=== PATIENT | female | born 1990 | race Two or more races ===

== ENCOUNTER 2019-10-03 22:29 | Emergency (ER) | payer SELFPAY ==
--- NOTE | 2019-10-03 22:36 | EDM.PDOC ---
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 x4. Per Dr. Irvin's clinic note from a visit on 07/30/2019, transvaginal ultrasound was done that confirmed IUP with EDC of 03/01/2020. 29-year-old female with no past medical history presenting with low abdominal/pelvic cramping. Onset around 7 PM while at rest. Nothing makes it better or worse, described as "cramping", rated as 7 out of 10. Pain has been constant since the onset. No history of prior pain like this with this . Nonradiating. No self treatment prior to arrival. Denies fever, chills, dysuria, urinary frequency, hematuria, vaginal bleeding or discharge, or back pain. ROS: A 10-point review of systems was negative, except as noted in the HPI (or in the ROS section of this note). Past medical history: Reviewed, no additional pertinent history. Surgical history: Reviewed in system, no additional pertinent history. Social history: Reviewed in system, no additional pertinent history. Family history: Reviewed in system, no additional pertinent history. PHYSICAL EXAM Vital signs reviewed. Nursing notes reviewed. Constitutional: Awake, alert, non-distressed. Head: Normocephalic, atraumatic. Eyes: EOMI, conjunctiva normal, no discharge, no scleral icterus. Ears, Nose, Throat: External ears and nose normal, moist oral mucosa. Cardiovascular: 2+ radial pulse, capillary refill less than 2 seconds. Pulmonary: normal work of breathing, no accessory muscle use. Abdomen/GI: Gravid, soft, mild midline low pelvic pain, nondistended, no guarding or rigidity, no masses. Negative Isidro sign. No tenderness to palpation at McBurney's point. Musculoskeletal: No deformities. Integumentary: Appropriate color for ethnicity, warm, dry, no pallor or jaundice, no rash. Neurologic: Alert, answering questions appropriately, normal speech, no facial droop, moving all extremities well. Psychiatric: Appropriate mood and affect, normal thought process. abdominal Pain Score (Numeric/FACES): 5 - Related Data Allergies Allergy/AdvReac Type Severity Reaction Status Date / Time No Known Allergies Allergy Verified 10/03/19 22:36 Home Meds: Home Meds Headache Medication 10/03/19 [History] nitrofurantoin macrocrystaL [Nitrofurantoin] 100 mg PO BID 5 Days #10 capsule 10/04/19 [Rx] ED ROS GENERAL - Review of Systems Review Of Systems: See Below ED EXAM - Physical Exam Exam: See Below Course - Vital Signs Text/Narrative:: Patient hemodynamically stable, afebrile, well-appearing, looks nontoxic. Differential diagnosis includes but is not limited to: Uterine pain, appendicitis, UTI, pyelonephritis, kidney stone, diverticulitis, epiploic appendagitis, threatened , round ligament pain, placental abruption, HELLP syndrome, ovarian cyst, ovarian torsion, etc. CBC shows a very mild leukocytosis to 11.85. CRP is minimally elevated at 1.00 (cutoff of 0.90). Metabolic panel shows a very mild hypokalemia. Normal renal function. Urinalysis shows small protein, large ketones, large leukocyte esterase, 15-18 white blood cells, 3+ bacteria and heavy mucus. Given Tylenol for pain. I considered a wide range differentials for the patient's pain as listed above. At this point my suspicion for an intra-abdominal infection, particularly appendicitis, is quite low. The patient is afebrile and has no constitutional symptoms such as fever, chills, nausea, or vomiting. Her white count is only very minimally elevated, as is her CRP, so this is not strongly suggestive of an inflammatory or infectious process. She has had pain for several hours and it has not migrated to the right lower quadrant or the right upper quadrant, which makes appendicitis less likely. Her pain improved with acetaminophen. Unfortunately, the ultrasound was not able to identify the adnexa or the appendix. I repeated my abdominal exam at 0245 - the patient is still minimally tender over the midline pelvis but her area of tenderness has not migrated laterally, which is reassuring that this is not likely to be appendicitis. She does not have any vaginal bleeding or discharge, so I did not feel that a pelvic examination would add to the diagnostic utility of this visit. We did discuss with the patient the limitations of ultrasound imaging without MRI or CT. We are not able to obtain an MRI after hours and I am not strongly suspicious for a surgical emergency or intra-abdominal infectious process at this point based on the overall presentation. I did not feel that the risk of radiation exposure with a CT outweighed the benefit of additional diagnostic utility given that my suspicion for a surgical emergency or intraabdominal infectious process is quite low at present. The patient is comfortable with this. I feel comfortable discharging the patient home at this point. I did prescribe nitrofurantoin for asymptomatic bacteriuria in . We did discuss that if her symptoms were to worsen, particularly worsening pain, or if she were to develop a fever, vaginal bleeding, vaginal discharge, or any other new or concerning symptoms, she should come back to the ER right away and we would consider advanced imaging and further workup at that point. In the meantime I counseled her that she can take [id number] Tylenol for pain along with use of a heating pad. She should follow-up with a primary medical doctor or her OB clinic in the next several days for reevaluation if her symptoms do not subside. She is comfortable and agreeable with this plan. Plan: Patient is stable to discharge home with outpatient primary care clinic follow-up. Strict emergency department return precautions were provided, patient indicated understanding. All questions were answered prior to departure. Discharged in good condition. Last Recorded V/S: Last Vital Signs Temp 36.0 C L 10/03/19 22:38 Pulse 83 10/03/19 22:38 Resp 18 10/03/19 22:38 BP 117/58 L 10/03/19 22:38 Pulse Ox 96 10/03/19 22:38 - Orders/Labs/Meds Labs: Laboratory Tests 10/03/19 10/03/19 10/03/19 Range/Units 22:58 22:58 23:05 WBC 11.85 H (4.0-11.0) K/uL RBC 3.90 L (4.30-5.90) M/uL Hgb 11.8 L (12.0-16.0) g/dL Hct 34.5 L (36.0-46.0) % MCV 88.5 (80.0-98.0) fL MCH 30.3 (27.0-32.0) pg MCHC 34.2 (31.0-37.0) g/dL RDW Std Deviation 40.6 (28.0-62.0) fl RDW Coeff of Digna 13 (11.0-15.0) % Plt Count 309 (150-400) K/uL MPV 9.00 (7.40-12.00) fL Neut % (Auto) 81.1 H (48.0-80.0) % Lymph % (Auto) 14.0 L (16.0-40.0) % [place] % (Auto) 4.5 (0.0-15.0) % Eos % (Auto) 0.2 (0.0-7.0) % Baso % (Auto) 0.2 (0.0-1.5) % Neut # (Auto) 9.6 H (1.4-5.7) K/uL Lymph # (Auto) 1.7 (0.6-2.4) K/uL [place] # (Auto) 0.5 (0.0-0.8) K/uL Eos # (Auto) 0.0 (0.0-0.7) K/uL Baso # (Auto) 0.0 (0.0-0.1) K/uL Nucleated RBC % 0.0 /100WBC Nucleated RBCs # 0 K/uL Sodium 138 (136-145) mmol/L Potassium 3.4 L (3.5-5.1) mmol/L Chloride 104 (98-107) mmol/L Carbon Dioxide 22.4 (21.0-32.0) mmol/L BUN 7 (7.0-18.0) mg/dL Creatinine 0.7 (0.6-1.0) mg/dL Est Cr Clr Drug Dosing 99.86 mL/min Estimated GFR (MDRD) > 60.0 ml/min Glucose 91 (74-106) mg/dL Calcium 9.2 (8.5-10.1) mg/dL C-Reactive Protein 1.00 H (0.00-0.90) mg/dL Urine Color YELLOW Urine Appearance CLOUDY Urine pH 6.0 (5.0-8.0) Ur Specific [place] 1.025 (1.001-1.035) Urine Protein 30 H (NEGATIVE) mg/dL Urine Glucose (UA) NEGATIVE (NEGATIVE) mg/dL Urine Ketones >=80 (NEGATIVE) mg/dL Urine Occult Blood NEGATIVE (NEGATIVE) Urine Nitrite NEGATIVE (NEGATIVE) Urine Bilirubin NEGATIVE (NEGATIVE) Urine Urobilinogen 1.0 (<2.0) EU/dL Ur Leukocyte Esterase LARGE H (NEGATIVE) Urine RBC 0-2 (0-2/HPF) Urine WBC 15-18 (0-5/HPF) Ur Epithelial Cells MANY (NONE-FEW) Amorphous Sediment MODERATE (NEGATIVE) Urine Bacteria 3+ H (NEGATIVE) Urine Mucus HEAVY (NONE-MOD) Meds: Medications Discontinued Medications Generic Name Dose Route Start Last Admin Trade Name Freq PRN Reason Stop Dose Admin Acetaminophen 1,000 mg 10/03/19 22:51 10/03/19 23:03 Tylenol Extra Strength PO 10/03/19 22:52 1,000 mg ONETIME ONE Administration Departure - Departure Time of Disposition: 02:48 Disposition: Home, Self-Care 01 Condition: Good Clinical Impression: Asymptomatic bacteriuria during Abdominal pain in Qualifiers: Trimester: second trimester Qualified Code(s): O26.892 - Other specified related conditions, second trimester - Discharge Information *PRESCRIPTION DRUG MONITORING PROGRAM REVIEWED*: Not Applicable *COPY OF PRESCRIPTION DRUG MONITORING REPORT IN PATIENT KERMIT: Not Applicable Prescriptions: nitrofurantoin macrocrystaL [Nitrofurantoin] 100 mg PO BID 5 Days #10 capsule Instructions: Asymptomatic Bacteriuria, Abdominal Pain During , [id number] Referrals: Chana Woody CNM [Primary Care Provider] - Forms: ED Department Discharge Additional Instructions: The following information is given to patients seen in the emergency department who are being discharged to home. This information is to outline your options for follow-up care. We provide all patients seen in our emergency department with a follow-up referral. The need for follow-up, as well as the timing and circumstances, are variable depending upon the specifics of your emergency department visit. If you don't have a primary care physician on staff, we will provide you with a referral. We always advise you to contact your personal physician following an emergency department visit to inform them of the circumstance of the visit and for follow-up with them and/or the need for any referrals to a consulting specialist. The emergency department will also refer you to a specialist when appropriate. This referral assures that you have the opportunity for follow-up care with a specialist. All of these measure are taken in an effort to provide you with optimal care, which includes your follow-up. Under all circumstances we always encourage you to contact your private physician who remains a resource for coordinating your care. When calling for follow-up care, please make the office aware that this follow-up is from your recent emergency room visit. If for any reason you are refused follow-up, please contact the [facility] Emergency Department at and asked to speak to the emergency department charge nurse. [facility] [address] [place] [id number] [facility] [address] [place] [id number] Sepsis Event Note (ED) - Focused Exam Vital Signs: Vital Signs Temp Pulse Resp BP Pulse Ox 10/03/19 22:38 36.0 C L 83 18 117/58 L 96
[2019-10-03] MEDS ORDERED: Acetaminophen 500 MG Tab PO ONE (22:51)
[2019-10-03 23:19] LABS: BLOOD UREA NITROGEN,BUN 7 mg/dL (7.0-18.0); CARBON DIOXIDE,CO2 22.4 mmol/L (21.0-32.0); CHLORIDE,CL 104 mmol/L (98-107); GLUCOSE RANDOM 91 mg/dL (74-106); POTASSIUM,K 3.4 mmol/L (3.5-5.1); SODIUM,NA 138 mmol/L (136-145)
--- NOTE | 2019-10-04 02:27 | US ---
INDICATION: Midline lower pelvic pain TECHNIQUE: Ultrasound OB pelvis transabdominal. Real-time keith-scale imaging of the fetus was performed as well as color Doppler and spectral Doppler analysis of the umbilical artery. COMPARISON: None FINDINGS: Sonographic imaging demonstrates a single living intrauterine gestation. Fetus demonstrates a regular cardiac rate of 147 beats per minute. Fetus has a transverse orientation. The placenta lies fundal and posterior without evidence of placenta previa. Amniotic fluid volume appears normal. Single deepest vertical pocket: 2.8 cm cm. Cervical length is 3.5 cm The composite ultrasound gestational age is calculated at 19 weeks 2 days with an estimated sonographic due date of February 26, 2020. The estimated weight is 291 grams which lies at the 84.6 %. The following biometric measurements were obtained: Biparietal diameter: 4.4 cm/19 weeks 2 days Head circumference: 16.3 cm/19 weeks 0 days Abdominal circumference: 14.6 cm/19 weeks 6 days Femur length: 2.9 cm/19 weeks 0 days The ovaries and the appendix were not visualized on this exam. survey demonstrates limited evaluation of the face, gender, nose and lips, right ventricular outflow tract, four-chamber heart. There is a three-vessel cord. Normal appearance of the stomach, cord insertion, both kidneys, diaphragm, upper and lower extremities, urinary bladder, aorta, left ventricular outflow tract, aortic arch, intracranial lateral ventricles, cerebellum, cisterna magna, and cervical, thoracic, lumbar and sacral spine. IMPRESSION: 1.Single viable intrauterine . No abnormalities identified. Ultrasound gestational age is 19 weeks 2 days with sonographic due date of February 26, 2020. 2. Limited survey as described above. Recommend follow-up exam. 3. The appendix and ovaries were not visualized on this exam. Dictated by Erica Goldman MD @ Oct 04 2019 2:19AM Signed by Dr. Erica Goldman @ Oct 04 2019 2:26AM
== END 2019-10-04 03:00 | disposition home or self-care (01) ==
LOC: MW.ED 22:29
DX: O99.89 Other specified diseases and conditions complicating pregnancy, childbirth and the puerperium (principal); R10.30 Lower abdominal pain, unspecified; O23.32 Infections of other parts of urinary tract in pregnancy, second trimester; R82.71 Bacteriuria; Z3A.19 19 weeks gestation of pregnancy
CPT/HCPCS: 36415; 76805; 80048; 81001; 85025; 86140; 99284; A9270; 99283

== ENCOUNTER 2020-02-16 02:26 | Inpatient (IN) | payer MEDICAID ==
[2020-02-16] MEDS ORDERED: Sodium Chloride 0.9% 10 ML SDV IV PRN ×2 (04:22→06:24)
[2020-02-16] MEDS ORDERED: Sodium Chloride 0.9% 10 ML Syringe FLUSH PRN ×2 (04:22→06:24)
[2020-02-16] MEDS ORDERED: Sodium Chloride 0.9% 2.5 ML Syringe FLUSH PRN ×2 (04:22→06:24)
[2020-02-16] MEDS ORDERED: hydrOXYzine Pamoate 25 MG Cap PO ONE (04:24)
[2020-02-16] MEDS ORDERED: Lactated Ringers 1,000 ML IV SCH (04:30)
[2020-02-16] MEDS ORDERED: Lidocaine 1% 50 ML MDV INJECT PRN (06:24)
[2020-02-16] MEDS ORDERED: Nalbuphine 10 MG/1 ML Vial IVPUSH PRN (06:24)
[2020-02-16] MEDS ORDERED: Water For Irrigation,Sterile 1,000 ML Container IRR PRN (06:24)
[2020-02-16] MEDS ORDERED: Misoprostol 200 MCG Tab PO PRN (06:24)
[2020-02-16] MEDS ORDERED: Methylergonovine 0.2 MG/1 ML Amp IM PRN (06:24)
[2020-02-16] MEDS ORDERED: Carboprost Tromethamine 250 MCG/1 ML Amp IM PRN (06:24)
[2020-02-16] MEDS ORDERED: Ondansetron 4 MG/2 ML SDV IVPUSH PRN (06:24)
[2020-02-16] MEDS ORDERED: Tranexamic Acid 1,000 MG in Sodium Chloride 0.9% 100 ML IV PRN (06:24)
[2020-02-16] MEDS ORDERED: Oxytocin/0.9 % Sodium Chloride 30 UNIT/500 ML BAG IV SCH ×2 (06:30→11:15)
[2020-02-16] MEDS ORDERED: Ampicillin 2 GM in Sodium Chloride 0.9% 100 ML IV ONE ×2 (06:31→21:30)
[2020-02-16] MEDS: Lactated Ringers 1,000 ML IV SCH ×2 (06:47→19:06)
[2020-02-16] MEDS: Butorphanol 1 MG/ML SDV IVPUSH PRN ×2 (06:52→16:28)
--- NOTE | 2020-02-16 08:46 | PCM.LDHP ---
L&D History of Present Illness - General Date of Service: 02/16/20 Admit Problem/Dx: Patient Status Order with Admit Dx/Problem 02/16/20 03:09 Patient Status [ADT] Routine 02/16/20 06:25 Patient Status [ADT] Routine Admission Diagnosis/Problem Admission Diagnosis/Problem 02/16/20 08:41 Gabby is a 29 yo at 38+0 weeks gestation (TA[place]NA 03/01/2020) that presents to L&D today with C/O painful consistent uterine contractions since 1 am today, 10/10 sharp pain upon arrival. Reports adequate movement. Denies [place] vaginal bleeding at this time. A pos, RI, GBS pos. NKDA. EFW via [place] 6- 7 lbs. Pertinent medical history includes: GBS pos screen this , low lying placenta this resolved, HSIL pap this , migraines. NKDA. Medications: PNV, Fioricet. Patient has no other complaints or concerns at this time. 02/16/20 08:43 02/16/20 08:46 Source of Information: Patient History Limitations: Reports: No Limitations - History of Present Illness Location, : Reports: Abdomen Quality: Reports: Sharp Severity: Severe Pain Score: 10 Improves with: Reports: None Worsens with: Reports: None Associated Symptoms: Reports: N - Related Data Allergies/Adverse Reactions: Allergies Allergy/AdvReac Type Severity Reaction Status Date / Time No Known Allergies Allergy Verified 10/03/19 22:36 Past Medical History HEENT History: Reports: None Cardiovascular History: Reports: None Respiratory History: Reports: None Gastrointestinal History: Reports: None Genitourinary History: Reports: None 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: , Other (See Below) (HSIL pap) : 5 Para: 4 LMP (Approximate): Musculoskeletal History: Reports: None Neurological History: Reports: Migraines Psychiatric History: Reports: None Endocrine/Metabolic History: Reports: None Hematologic History: Reports: None Immunologic History: Reports: None Oncologic (Cancer) History: Reports: None Dermatologic History: Reports: None - Infectious Disease History Infectious Disease History: Reports: None - Past Surgical History Head Surgeries/Procedures: Reports: None HEENT Surgical History: Reports: None Cardiovascular Surgical History: Reports: None GI Surgical History: Reports: None Female Surgical History: Reports: None Endocrine Surgical History: Reports: None Neurological Surgical History: Reports: None Musculoskeletal Surgical History: Reports: None Oncologic Surgical History: Reports: None Dermatological Surgical History: Reports: None Social & Family History - Family History Family Medical History: No Pertinent Family History - Tobacco Use Tobacco Use Status *Q: Never Tobacco User Second Hand Smoke Exposure: No - Caffeine Use Caffeine Use: Reports: None - Alcohol Use Alcohol Use History: No - Recreational Drug Use Recreational Drug Use: No H&P Review of Systems - Review of Systems: Review Of Systems: Comprehensive ROS is negative, except as noted in HPI. General: Reports: No Symptoms HEENT: Reports: No Symptoms Pulmonary: Reports: No Symptoms Cardiovascular: Reports: No Symptoms Gastrointestinal: Reports: No Symptoms Genitourinary: Reports: No Symptoms Musculoskeletal: Reports: No Symptoms Skin: Reports: No Symptoms Psychiatric: Reports: No Symptoms Neurological: Reports: No Symptoms Hematologic/Lymphatic: Reports: No Symptoms Immunologic: Reports: No Symptoms L&D Exam - Exam Exam: See Below - Vital Signs Vital Signs: BP 102/60 (68), HR 82, T 97.8, RR 16, O2 100% on RA Weight: 188 lb 3 oz - OB Specific Fundal Height In cm: 38 Contraction Duration (sec): 80-90 Contraction Frequency (min): 2-4 Contraction Intensity: Moderate to Strong Movement: Active Heart Tones: Present Heart Tones per Min: 120 Heart Rate (FHR) Variability: Moderate (6-25 bmp) Presentation: Vertex (Confirmed vertex via handheld TAUS at bedside) - Bates Score Bates Score Cervix Position: Midposition Bates Score Consistency: Soft Bates Score Effacement: 51-70% Bates Score Dilation: 1-2 cm Bates Score Infant's Station: -2 Bates Score Total: 7 - Exam General: Oriented, Cooperative, Sedated (Stadol 1 mg IV push at 0652) HEENT: Conjunctiva Clear, Hearing Intact, Mucosa Moist & [place], TMs Clear, PERRLA Neck: Supple, Trachea Midline Lungs: Clear to Auscultation, Normal Respiratory Effort Cardiovascular: Regular Rate, Regular Rhythm GI/Abdominal Exam: Normal Bowel Sounds, Soft, Non-Tender, No Organomegaly, No Distention Rectal Exam: Deferred Genitourinary: Enlarged uterus (Gravid uterus, 38 cm) Back Exam: Normal Inspection, Full Range of Motion Extremities: Normal Inspection, Normal Range of Motion, Non-Tender, No Pedal Edema, Normal Capillary Refill Skin: Warm, Dry, Intact Neurological: Cranial Nerves Intact, Reflexes Equal Bilateral Psychiatric: Alert, Normal Affect, Normal Mood - Patient Data Lab Results Last 24 hrs: Laboratory Results - last 24 hr 02/16/20 02/16/20 02/16/20 Range/Units 06:20 06:43 06:43 WBC 8.87 (4.0-11.0) K/uL RBC 3.97 L (4.30-5.90) M/uL Hgb 10.8 L (12.0-16.0) g/dL Hct 33.7 L (36.0-46.0) % MCV 84.9 (80.0-98.0) fL MCH 27.2 (27.0-32.0) pg MCHC 32.0 (31.0-37.0) g/dL RDW Std Deviation 38.7 (28.0-62.0) fl RDW Coeff of Digna 13 (11.0-15.0) % Plt Count 313 (150-400) K/uL MPV 10.50 (7.40-12.00) fL Nucleated RBC % 0.0 /100WBC Nucleated RBCs # 0 K/uL SARS-CoV-2 RNA (ALISA) NEGATIVE (NEGATIVE) Blood Type A POSITIVE Antibody Screen NEGATIVE Result Diagrams: 02/16/20 06:43 - Problem List (1) Uterine contractions at greater than 20 weeks of gestation SNOMED Code(s): 060642529 ICD Code: [id number] - Status: Acute Priority: High Current Visit: Yes (2) 38 weeks gestation of SNOMED Code(s): 55537636 ICD Code: Z3A.38 - 38 WEEKS GESTATION OF Status: Acute Priority: High Current Visit: Yes Problem List Initiated/Reviewed/Updated: Yes Orders Last 24hrs: Active Orders 24 hr Category Date Time Status Patient Status [ADT] Routine ADT 02/16/20 06:25 Active May Shower [RC] ASDIRECTED Care 02/16/20 06:25 Active Notify Provider [RC] PRN Care 02/16/20 06:25 Active Up ad Shannon [RC] ASDIRECTED Care 02/16/20 03:09 Active Vital Signs [RC] PER UNIT ROUTINE Care 02/16/20 03:09 Active Vital Signs [RC] PER UNIT ROUTINE Care 02/16/20 06:25 Active RPR (SYPHILIS SERO) W/ RFLX [REF] Routine Lab 02/16/20 06:43 Received Ampicillin 1 gm Med 02/16/20 11:00 Active Sodium Chloride 0.9% [Normal Saline] 50 ml IV Q4H Butorphanol [Stadol] Med 02/16/20 06:24 Active 1 mg IVPUSH Q1H PRN Carboprost Tromethamine [Hemabate DS] Med 02/16/20 06:24 Active 250 mcg IM ASDIRECTED PRN Lactated Ringers [Ringers, Lactated] 1,000 ml Med 02/16/20 04:30 Active IV .BOLUS Lactated Ringers [Ringers, Lactated] 1,000 ml Med 02/16/20 06:30 Active IV ASDIRECTED Lidocaine 1% [Xylocaine 1%] Med 02/16/20 06:24 Active 50 ml INJECT ONETIME PRN Methylergonovine [Methergine] Med 02/16/20 06:24 Active 0.2 mg IM ASDIRECTED PRN Nalbuphine [Nubain] Med 02/16/20 06:24 Active 10 mg IVPUSH Q1H PRN Ondansetron [Zofran] Med 02/16/20 06:24 Active 4 mg IVPUSH Q6H PRN Oxytocin/0.9 % Sodium Chloride [Oxytocin 30 Unit/500 ML Med 02/16/20 06:30 Active -NS] 30 unit in 500 ml IV TITRATE Sodium Chloride 0.9% [Normal Saline] Med 02/16/20 04:22 Active 10 ml IV ASDIRECTED PRN Sodium Chloride 0.9% [Normal Saline] Med 02/16/20 06:24 Active 10 ml IV ASDIRECTED PRN Sodium Chloride 0.9% [Saline Flush] Med 02/16/20 04:22 Active 10 ml FLUSH ASDIRECTED PRN Sodium Chloride 0.9% [Saline Flush] Med 02/16/20 06:24 Active 10 ml FLUSH ASDIRECTED PRN Sodium Chloride 0.9% [Saline Flush] Med 02/16/20 04:22 Active 2.5 ml FLUSH ASDIRECTED PRN Sodium Chloride 0.9% [Saline Flush] Med 02/16/20 06:24 Active 2.5 ml FLUSH ASDIRECTED PRN Tranexamic Acid [Cyklokapron] 1,000 mg Med 02/16/20 06:24 Active Sodium Chloride 0.9% [Normal Saline] 100 ml IV ONETIME Water For Irrigation,Sterile [Sterile Water for Med 02/16/20 06:24 Active Irrigation] 1,000 ml IRR ASDIRECTED PRN miSOPROStoL [Cytotec] Med 02/16/20 06:24 Active 200 mcg PO ONETIME PRN Scalp Electrode [WOMSER] Per Unit Routine Oth 02/16/20 06:25 Ordered Peripheral IV Insertion Adult [OM.PC] Routine Oth 02/16/20 04:22 Ordered Peripheral IV Insertion Adult [OM.PC] Routine Oth 02/16/20 06:25 Ordered Resuscitation Status Routine Resus Stat 02/16/20 03:09 Ordered Medication Orders Butorphanol Tartrate (Stadol) 1 mg IVPUSH Q1H PRN PRN Reason: Pain Last Admin: 02/16/20 06:52 Dose: 1 mg Documented by: LEANNE Carboprost Tromethamine (Hemabate Ds) 250 mcg IM ASDIRECTED PRN PRN Reason: Post Hemorrhage Lactated Ringer's (Ringers, Lactated) 1,000 mls @ 999 mls/hr IV .BOLUS [facility], [facility]1983 Last Admin: 02/16/20 04:45 Dose: 999 mls/hr Documented by: LEANNE Lactated Ringer's (Ringers, Lactated) 1,000 mls @ 150 mls/hr IV ASDIRECTED [facility], [facility] Last Admin: 02/16/20 06:47 Dose: 150 mls/hr Documented by: LEANNE Oxytocin/Sodium Chloride (Oxytocin 30 Unit/500 Ml-Ns) 30 unit in 500 mls @ 999 mls/hr IV TITRATE [facility], [facility]1983 Tranexamic Acid 1,000 mg/ (Sodium Chloride) 110 mls @ 660 mls/hr IV ONETIME PRN PRN Reason: Bleeding Ampicillin Sodium 1 gm/ Sodium (Chloride) 50 mls @ 100 mls/hr IV Q4H [facility]1983 Lidocaine HCl (Xylocaine 1%) 50 ml INJECT ONETIME PRN PRN Reason: Laceration repair Methylergonovine Maleate (Methergine) 0.2 mg IM ASDIRECTED PRN PRN Reason: Post Hemorrhage Misoprostol (Cytotec) 200 mcg PO ONETIME PRN PRN Reason: Post Hemorrhage Nalbuphine HCl (Nubain) 10 mg IVPUSH Q1H PRN PRN Reason: Pain (severe 7-10) Ondansetron HCl (Zofran) 4 mg IVPUSH Q6H PRN PRN Reason: Nausea/Vomiting Sodium Chloride (Saline Flush) 10 ml FLUSH ASDIRECTED PRN PRN Reason: Keep Vein Open Sodium Chloride (Saline Flush) 2.5 ml FLUSH ASDIRECTED PRN PRN Reason: Keep Vein Open Sodium Chloride (Normal Saline) 10 ml IV ASDIRECTED PRN PRN Reason: IV Use Sodium Chloride (Saline Flush) 10 ml FLUSH ASDIRECTED PRN PRN Reason: Keep Vein Open Sodium Chloride (Saline Flush) 2.5 ml FLUSH ASDIRECTED PRN PRN Reason: Keep Vein Open Sodium Chloride (Normal Saline) 10 ml IV ASDIRECTED PRN PRN Reason: IV Use Sterile Water (Sterile Water For Irrigation) 1,000 ml IRR ASDIRECTED PRN PRN Reason: delivery Assessment/Plan Comment:: Admit for observation in anticipation of of term viable . Vertex via handheld TAUS at bedside. FHR Cat II. Spontaneous contractions noted. Expectant management, reassess cervical dilation ~1015 am. If no change has been make, notify provider May ambulate and hydrotherapy as desired after reactive NST achieved; repeat NST per orders. May receive epidural if desired between 4-[address] new orders[address] Dr. Irvin notified and agreeable with POC.
[2020-02-16] MEDS: Ampicillin 1 GM in Sodium Chloride 0.9% 50 ML IV SCH ×3 (10:48→18:44)
[2020-02-16] MEDS ORDERED: Ampicillin 1 GM in Sodium Chloride 0.9% 50 ML IV SCH (11:00)
[2020-02-16] MEDS ORDERED: Misoprostol 25 MCG (1/4 of 100 MCG) Tab PO PRN (11:06)
[2020-02-16] MEDS ORDERED: Misoprostol 25 MCG (1/4 of 100 MCG) Tab VAG PRN (11:06)
[2020-02-16] MEDS ORDERED: Terbutaline 1 MG/ML SDV SUBCUT PRN (11:06)
[2020-02-16] MEDS ORDERED: fentaNYL 100 MCG/2 ML SDV ONE (19:09)
[2020-02-16] MEDS ORDERED: Ropivacaine HCl/PF 100 ML ONE (19:09)
[2020-02-16] MEDS ORDERED: HYDROmorphone 2 MG/ML Syringe ONE ×2 (20:35→20:37)
[2020-02-16] MEDS ORDERED: HYDROmorphone 1 MG/ML Syringe IVPUSH ONE (20:36)
[2020-02-16] MEDS ORDERED: Morphine 2 MG/ML SYRINGE ONE (20:42)
[2020-02-16] MEDS ORDERED: Morphine 2 MG/ML SYRINGE IVPUSH ONE (20:46)
[2020-02-16] MEDS ORDERED: Witch Hazel Medicated Pads 40/Jar TOP PRN (21:28)
[2020-02-16] MEDS ORDERED: Ibuprofen 400 MG Tab PO PRN (21:28)
[2020-02-16] MEDS ORDERED: Ibuprofen 800 MG Tab PO PRN (21:28)
[2020-02-16] MEDS ORDERED: oxyCODONE 5 MG Tab PO PRN (21:28)
[2020-02-16] MEDS ORDERED: Lanolin 100% Cream 7 GM Tube TOP PRN (21:28)
[2020-02-16] MEDS ORDERED: Acetaminophen 500 MG Tab PO PRN (21:28)
[2020-02-16] MEDS ORDERED: Bisacodyl 10 MG Supp RECTAL PRN (21:28)
[2020-02-16] MEDS ORDERED: Benzocaine/Menthol 20%-0.5% Spray 78 GM Cannister TOP PRN (21:28)
--- NOTE | 2020-02-16 21:31 | PCM.DEL ---
L & D Note - General Info Date of Service: 02/16/20 Mother's Due Date: 03/01/20 - Delivery Note Labor: Augmented by ARM, Augmented by Oxytocin Delivery Outcome: Livebirth Delivery Method: Spontaneous Vaginal Delivery-Single Infant Delivery Mode: Spontaneous Presentation: Right Occiput Anterior (QUANG) Nuchal Cord: Present (Somers[place]ed through, reduced S/P delivery) Anesthesia Type: None Amniotic Fluid Description: Clear Episiotomy Type: None Laceration: None Placenta: Intact, Manual Removal, Retained Cord: 3 Vessels Estimated Blood Loss: 600 Resuscitation Needed: No : Stimulated, Warmed, [place] Used Score 1 min: 8 Score 5 min: 9 Post Delivery Events: Retained Placenta Second Stage Interventions: Reports: Encouragement Given, Pushing Ineffectively, Pushing, Stirrups/Leg Supports Delivery Comments (Free Text/Narrative):: Gabby is a 29 yo at 38+0 weeks gestation ([place] 03/01/2020) that presents to L&D today with spontaneous contractions and augmentation of labor with subsequent of term viable NBF. A pos, RI, GBS pos. NKDA. Patient expressed desire for epidural, however patient was complete with spontaneous desire to push upon arrival of anesthesiologist, ultimately declined epidural. Coped fairly well using non-pharmacologic comfort measures. Cephalic presentation. head delivered QUANG spontaneously, loose nuchal x1 noted, body somersaulted through shortly after with the next push. NBF placed to maternal abdomen, warmed, dried, stimulated with spontaneous cries. Umbilical cord left intact for ~3 min, clamped x 2, cut by FOB. Pitocin bolus commenced, gentle cord traction applied for active third stage management. Perineum inspected, intact. I&O urinary catheter utilized to empty bladder; urethra cleansed with iodine swab x3, inserted gently using sterile technique, ~500 ml clear urine noted. Retained placenta noted 30 min S/P delivery of NBF regardless of active third stage methods and ambulation/position changes, Dr. Irvin called to beside. 2 mg morphine ordered, given IV push. Placenta birthed ~40 min S/P NBF via manual placenta removal performed by Dr. Irvin; intact, Lane, 3VC. Uterus firm @U. Small vaginal bleeding noted. EBL 600 ml. Prophylactic 0.2 mg methergine given to left anterior thigh. Prophylactic 2 mg ampicillin ordered IV once S/P delivery. APGARS 8/9. weight 7 lb 10 oz. - General Info Date of Service: 02/16/20 Admission Dx/Problem (Free Text): Patient Status Order with Admit Dx/Problem 02/16/20 03:09 Patient Status [ADT] Routine 02/16/20 06:25 Patient Status [ADT] Routine Admission Diagnosis/Problem Admission Diagnosis/Problem 02/16/20 08:41 Gabby is a 29 yo at 38+0 weeks gestation ([place] 03/01/2020) that presents to L&D today with C/O painful consistent uterine contractions since 1 am today, 10/10 sharp pain upon arrival. Reports adequate movement. Denies [place] vaginal bleeding at this time. A pos, RI, GBS pos. NKDA. EFW via [place] 6- 7 lbs. Pertinent medical history includes: GBS pos screen this , low lying placenta this resolved, HSIL pap this , migraines. NKDA. Medications: PNV, Fioricet. Patient has no other complaints or concerns at this time. 02/16/20 08:43 02/16/20 08:46 Functional Status: Reports: Pain Controlled, Tolerating Diet, Ambulating, Ur inating - Review of Systems General: Reports: No Symptoms HEENT: Reports: No Symptoms Pulmonary: Reports: No Symptoms Cardiovascular: Reports: No Symptoms Gastrointestinal: Reports: No Symptoms Genitourinary: Reports: No Symptoms Musculoskeletal: Reports: No Symptoms Skin: Reports: No Symptoms Neurological: Reports: No Symptoms Psychiatric: Reports: No Symptoms - Patient Data Vitals - Most Recent: T 97.3 F; BP 122/77 (86); HR 101; O2 100% on RA; RR 14 Weight - Most Recent: 188 lb 3 oz Lab Results Last 24 Hours: Laboratory Results - last 24 hr 02/16/20 02/16/20 02/16/20 Range/Units 06:20 06:43 06:43 WBC 8.87 (4.0-11.0) K/uL RBC 3.97 L (4.30-5.90) M/uL Hgb 10.8 L (12.0-16.0) g/dL Hct 33.7 L (36.0-46.0) % MCV 84.9 (80.0-98.0) fL MCH 27.2 (27.0-32.0) pg MCHC 32.0 (31.0-37.0) g/dL RDW Std Deviation 38.7 (28.0-62.0) fl RDW Coeff of Digna 13 (11.0-15.0) % Plt Count 313 (150-400) K/uL MPV 10.50 (7.40-12.00) fL Nucleated RBC % 0.0 /100WBC Nucleated RBCs # 0 K/uL SARS-CoV-2 RNA (ALISA) NEGATIVE (NEGATIVE) Blood Type A POSITIVE Antibody Screen NEGATIVE Med Orders - Current: Current Medications Acetaminophen (Tylenol Extra Strength) 500 mg PO Q4H PRN PRN Reason: Pain Acetaminophen (Tylenol Extra Strength) 1,000 mg PO Q4H PRN PRN Reason: Pain Benzocaine/Menthol (Dermoplast Pain Relief 20%-0.5% [place]) 78 gm TOP ASDIRECTED PRN PRN Reason: Perineal Comfort Measure Bisacodyl (Dulcolax) 10 mg RECTAL ONETIME PRN PRN Reason: Constipation Docusate Sodium (Colace) 100 mg PO BID PRN PRN Reason: Constipation Emollient Ointment (Lansinoh Hpa) 0 gm TOP ASDIRECTED PRN PRN Reason: Sore Nipples Ampicillin Sodium 2 gm/ Sodium (Chloride) 100 mls @ 200 mls/hr IV ONETIME ONE Stop: 02/16/20 21:59 Ibuprofen (Motrin) 400 mg PO Q4H PRN PRN Reason: Pain Ibuprofen (Motrin) 800 mg PO Q6H PRN PRN Reason: Pain Oxycodone HCl (Oxycodone) 5 mg PO Q2H PRN PRN Reason: Pain Polysaccharide Iron Complex (Ferrex 150) 150 mg PO DAILY [facility] Justyna Burr (Tucks) 1 pad TOP ASDIRECTED PRN PRN Reason: comfort care Discontinued Medications Butorphanol Tartrate (Stadol) 1 mg IVPUSH Q1H PRN PRN Reason: Pain Last Admin: 02/16/20 16:28 Dose: 1 mg Documented by: Carboprost Tromethamine (Hemabate Ds) 250 mcg IM ASDIRECTED PRN PRN Reason: Post Hemorrhage Fentanyl (Sublimaze) Confirm Administered Dose 100 mcg .ROUTE .STK-MED ONE Stop: 02/16/20 19:10 Hydromorphone HCl (Dilaudid) 1 mg IVPUSH ONETIME ONE Stop: 02/16/20 20:37 Hydromorphone HCl (Dilaudid) Confirm Administered Dose 2 mg .ROUTE .STK-MED ONE Stop: 02/16/20 20:36 Hydromorphone HCl (Dilaudid) Confirm Administered Dose 0 mg .ROUTE .STK-MED ONE Stop: 02/16/20 20:38 Hydroxyzine Pamoate (Vistaril) 25 mg PO ONETIME ONE Stop: 02/16/20 04:25 Last Admin: 02/16/20 04:48 Dose: 25 mg Documented by: Lactated Ringer's (Ringers, Lactated) 1,000 mls @ 999 mls/hr IV .BOLUS [facility] Last Admin: 02/16/20 04:45 Dose: 999 mls/hr Documented by: Lactated Ringer's (Ringers, Lactated) 1,000 mls @ 150 mls/hr IV ASDIRECTED [facility] Last Admin: 02/16/20 19:06 Dose: 999 mls/hr Documented by: Oxytocin/Sodium Chloride (Oxytocin 30 Unit/500 Ml-Ns) 30 unit in 500 mls @ 999 mls/hr IV TITRATE BULL Tranexamic Acid 1,000 mg/ (Sodium Chloride) 110 mls @ 660 mls/hr IV ONETIME PRN PRN Reason: Bleeding Ampicillin Sodium 2 gm/ Sodium (Chloride) 100 mls @ 200 mls/hr IV ONETIME ONE Stop: 02/16/20 07:00 Last Admin: 02/16/20 06:48 Dose: 200 mls/hr Documented by: Ampicillin Sodium 1 gm/ Sodium (Chloride) 50 mls @ 100 mls/hr IV Q4H BULL Last Admin: 02/16/20 18:44 Dose: 100 mls/hr Documented by: Oxytocin/Sodium Chloride (Oxytocin 30 Unit/500 Ml-Ns) 30 unit in 500 mls @ 2 mls/hr IV TITRATE BULL; Protocol Last Titration: 02/16/20 18:38 Dose: 2 munits/min, 2 mls/hr Documented by: Ropivacaine (Naropin 0.2%) Confirm Administered Dose 100 mls @ as directed .ROUTE .STK-MED ONE Stop: 02/16/20 19:10 Lidocaine HCl (Xylocaine 1%) 50 ml INJECT ONETIME PRN PRN Reason: Laceration repair Methylergonovine Maleate (Methergine) 0.2 mg IM ASDIRECTED PRN PRN Reason: Post Hemorrhage Misoprostol (Cytotec) 200 mcg PO ONETIME PRN PRN Reason: Post Hemorrhage Misoprostol (Cytotec) 25 mcg VAG ONETIME PRN PRN Reason: Cervical Ripening Last Admin: 02/16/20 12:40 Dose: 25 mcg Documented by: Misoprostol (Cytotec) 25 mcg PO ONETIME PRN PRN Reason: Cervical Ripening Last Admin: 02/16/20 12:39 Dose: 25 mcg Documented by: Morphine Sulfate (Morphine) Confirm Administered Dose 2 mg .ROUTE .[facility] ONE Stop: 02/16/20 20:43 Morphine Sulfate (Morphine) 2 mg IVPUSH ONETIME ONE Stop: 02/16/20 20:47 Nalbuphine HCl (Nubain) 10 mg IVPUSH Q1H PRN PRN Reason: Pain (severe 7-10) Ondansetron HCl (Zofran) 4 mg IVPUSH Q6H PRN PRN Reason: Nausea/Vomiting Sodium Chloride (Saline Flush) 10 ml FLUSH ASDIRECTED PRN PRN Reason: Keep Vein Open Sodium Chloride (Saline Flush) 2.5 ml FLUSH ASDIRECTED PRN PRN Reason: Keep Vein Open Sodium Chloride (Normal Saline) 10 ml IV ASDIRECTED PRN PRN Reason: IV Use Sodium Chloride (Saline Flush) 10 ml FLUSH ASDIRECTED PRN PRN Reason: Keep Vein Open Sodium Chloride (Saline Flush) 2.5 ml FLUSH ASDIRECTED PRN PRN Reason: Keep Vein Open Sodium Chloride (Normal Saline) 10 ml IV ASDIRECTED PRN PRN Reason: IV Use Sterile Water (Sterile Water For Irrigation) 1,000 ml IRR ASDIRECTED PRN PRN Reason: delivery Terbutaline Sulfate (Brethine) 0.25 mg SUBCUT ASDIRECTED PRN PRN Reason: Tacysystole - Exam General: Alert, Oriented, Cooperative, No Acute Distress HEENT: Pupils Equal, Pupils Reactive, Mucous Membr. Moist/[place] Neck: Supple Lungs: Clear to Auscultation, Normal Respiratory Effort Cardiovascular: Regular Rate, Regular Rhythm GI/Abdominal Exam: Normal Bowel Sounds, Soft, Non-Tender, No Organomegaly, No Distention, No Mass (Female) Exam: Normal External Exam, Enlarged Uterus ( uterus, firm @U), Vaginal Bleeding (Small rubra lochia, no clots.) Back Exam: Normal Inspection, Full Range of Motion Extremities: Normal Inspection, Normal Range of Motion, Non-Tender, No Pedal Edema, Normal Capillary Refill Skin: Warm, Dry, Intact Neurological: No New Focal Deficit Psy/Mental Status: Alert, Normal Affect, Normal Mood - Problem List & Annotations (1) (spontaneous vaginal delivery) SNOMED Code(s): 243579619 Code(s): O80 - ENCOUNTER FOR FULL-TERM UNCOMPLICATED DELIVERY Status: Acute Priority: High Current Visit: Yes (2) Retained placenta without hemorrhage SNOMED Code(s): 293528291 Code(s): O73.0 - RETAINED PLACENTA WITHOUT HEMORRHAGE Status: Acute Priority: High Current Visit: Yes (3) Lactating mother SNOMED Code(s): 036566255, 282212423 Code(s): Z39.1 - ENCOUNTER FOR CARE AND EXAMINATION OF LACTATING MOTHER Status: Acute Priority: High Current Visit: Yes - Problem List Review Problem List Initiated/Reviewed/Updated: Yes - My Orders Last 24 Hours: My Active Orders 02/16/20 06:43 RPR (SYPHILIS SERO) W/ RFLX [REF] Routine 02/16/20 21:28 Patient Status [ADT] Routine May Shower [RC] ASDIRECTED Up ad [place] [RC] ASDIRECTED Vital Signs [RC] PER UNIT ROUTINE Acetaminophen [Tylenol Extra Strength] 1,000 mg PO Q4H PRN Acetaminophen [Tylenol Extra Strength] 500 mg PO Q4H PRN Benzocaine/Menthol [Dermoplast Pain Relief 20%-0.5% [place]] 78 gm TOP ASDIRECTED PRN Docusate Sodium [Colace] 100 mg PO BID PRN Ibuprofen [Motrin] 400 mg PO Q4H PRN Ibuprofen [Motrin] 800 mg PO Q6H PRN Lanolin [Lansinoh HPA] See Dose Instructions TOP ASDIRECTED PRN bisacodyL [Dulcolax] 10 mg RECTAL ONETIME PRN oxyCODONE 5 mg PO Q2H PRN witch [place] [Tucks] 1 pad TOP ASDIRECTED PRN Assess Lochia [WOMSER] Per Unit Routine Assess Uterine Involution [WOMSER] Per Unit Routine Peripheral IV Discontinue [OM.PC] Routine Resuscitation Status Routine 02/16/20 21:29 Ice Therapy [OM.PC] Per Unit Routine Perineal Care [OM.PC] Per Unit Routine Sitz Bath [OM.PC] Per Unit Routine 02/16/20 21:30 Cooling Warming Measures [RC] ASDIRECTED Ampicillin 2 gm Sodium Chloride 0.9% [Normal Saline] 100 ml IV ONETIME 02/17/20 05:11 HEMOGLOBIN/HEMATOCRIT,HH [HEME] Timed 02/17/20 Breakfast Regular Diet [DIET] 02/17/20 09:00 Iron Polysaccharides Complex [Ferrex 150] 150 mg PO DAILY - Plan Plan:: Admit inpatient to unit S/P of term, viable NBF. Hemodynamically stable, afebrile. Regular diet as tolerated. May ambulate with assistance as desired. If patient does not void within 6 hours S/P delivery, notify provider. support may be provided if desired or needed. H/H in am. Ampicillin 2 mg IV now for manual placenta removal prophylaxis. See new orders. Dr. Irvin notified and agreeable with POC.
[2020-02-16] MEDS: Acetaminophen 500 MG Tab PO PRN (22:01)
[2020-02-16] MEDS: Docusate Sodium 100 MG Cap PO PRN (22:02)
[2020-02-17] MEDS ORDERED: Tranexamic Acid 1,000 MG in Sodium Chloride 0.9% 100 ML IV ONE (00:53)
[2020-02-17] MEDS ORDERED: Benzocaine/Menthol 20%-0.5% Spray 78 GM Cannister ONE (03:53)
[2020-02-17] MEDS: Acetaminophen 500 MG Tab PO PRN (04:18)
[2020-02-17] MEDS ORDERED: Lactated Ringers 1,000 ML IV STA (07:43)
--- NOTE | 2020-02-17 08:03 | PCM.PNPP ---
- General Info Date of Service: 02/17/20 Admission Dx/Problem (Free Text): Patient Status Order with Admit Dx/Problem 02/16/20 03:09 Patient Status [ADT] Routine 02/16/20 06:25 Patient Status [ADT] Routine Admission Diagnosis/Problem Admission Diagnosis/Problem 02/16/20 08:41 Gabby is a 29 yo S/P of viable term at 38+0 weeks gestation ([place] 03/01/2020) with manual placenta removal performed by Dr. Irvin ~45 s/p . Pitocin bolus and IM methergine administered at that time. Through the night, the patient experienced heavy [place] vaginal bleeding without clots. TXA administered, vaginal bleeding improved to moderate bleeding with no clots. A pos, Ab screen neg, RI, GBS pos with adequate ampicillin prophylaxis during labor. Patient experiencing mild to moderate uterine cramping somewhat al leviated by acetaminophen. Upon ambulation to bathroom, patient experiencing light-headedness, dizziness. Hgb down from 10.8 pre-delivery to 7.8 post- delivery. Patient hydrating independently, and has not eaten thus far. Patient continues to void without issue. Continuing to breastfeed well. [place] resting quietly in bassinet at bedside. Patient denies any other issues at this time. NKDA. 02/16/20 08:43 02/16/20 08:46 Functional Status: Reports: Pain Controlled, Tolerating Diet, Ambulating, Urinating, New Symptoms - Review of Systems General: Reports: Weakness, Fatigue, Other (Dizziness) HEENT: Reports: No Symptoms Pulmonary: Reports: No Symptoms Cardiovascular: Reports: No Symptoms Gastrointestinal: Reports: No Symptoms Genitourinary: Reports: No Symptoms Musculoskeletal: Reports: No Symptoms Skin: Reports: No Symptoms Neurological: Reports: No Symptoms Psychiatric: Reports: No Symptoms - General Info Date of Service: 02/17/20 - Patient Data Vital Signs - Most Recent: Last Vital Signs Temp 97.6 F 02/17/20 04:00 Pulse 79 02/17/20 04:00 Resp 16 02/17/20 04:00 BP 108/64 02/17/20 04:00 Pulse Ox 96 02/17/20 04:00 02/17/2020, 0800: BP 103/55, HR 86, O2 94% on RA, RR 16, T 97.9 F. Weight - Most Recent: 188 lb 3 oz I&O - Last 24 Hours: Intake & Output 02/16/20 02/17/20 02/17/20 22:59 06:59 14:59 Output Total 500 Balance -500 Lab Results - Last 24 Hours: Laboratory Results - last 24 hr 02/16/20 02/17/20 Range/Units 06:43 06:15 Hgb 7.8 L (12.0-16.0) g/dL Hct 24.0 L (36.0-46.0) % Crossmatch See Detail Med Orders - Current: Current Medications Acetaminophen (Tylenol Extra Strength) 500 mg PO Q4H PRN PRN Reason: Pain Acetaminophen (Tylenol Extra Strength) 1,000 mg PO Q4H PRN PRN Reason: Pain Last Admin: 02/17/20 04:18 Dose: 1,000 mg Documented by: Benzocaine/Menthol (Dermoplast Pain Relief 20%-0.5% [place]) 78 gm TOP ASDIRECTED PRN PRN Reason: Perineal Comfort Measure Last Admin: 02/16/20 22:03 Dose: 1 canister Documented by: Bisacodyl (Dulcolax) 10 mg RECTAL ONETIME PRN PRN Reason: Constipation Docusate Sodium (Colace) 100 mg PO BID PRN PRN Reason: Constipation Last Admin: 02/16/20 22:02 Dose: 100 mg Documented by: Emollient Ointment (Lansinoh Hpa) 0 gm TOP ASDIRECTED PRN PRN Reason: Sore Nipples Last Admin: 02/16/20 22:02 Dose: 7 gm Documented by: Lactated Ringer's (Ringers, Lactated) 1,000 mls @ 999 mls/hr IV STAT STA Stop: 02/17/20 08:43 Ibuprofen (Motrin) 400 mg PO Q4H PRN PRN Reason: Pain Ibuprofen (Motrin) 800 mg PO Q6H PRN PRN Reason: Pain Oxycodone HCl (Oxycodone) 5 mg PO Q2H PRN PRN Reason: Pain Polysaccharide Iron Complex (Ferrex 150) 150 mg PO DAILY [place] Burr (Tucks) 1 pad TOP ASDIRECTED PRN PRN Reason: comfort care Last Admin: 02/16/20 22:03 Dose: 1 tub Documented by: Discontinued Medications Benzocaine/Menthol (Dermoplast Pain Relief 20%-0.5% [place]) Confirm Administered Dose 0 gm .ROUTE .STK-MED ONE Stop: 02/17/20 03:54 Butorphanol Tartrate (Stadol) 1 mg IVPUSH Q1H PRN PRN Reason: Pain Last Admin: 02/16/20 16:28 Dose: 1 mg Documented by: Carboprost Tromethamine (Hemabate Ds) 250 mcg IM ASDIRECTED PRN PRN Reason: Post Hemorrhage Fentanyl (Sublimaze) Confirm Administered Dose 100 mcg .ROUTE .STK-MED ONE Stop: 02/16/20 19:10 Hydromorphone HCl (Dilaudid) 1 mg IVPUSH ONETIME ONE Stop: 02/16/20 20:37 Hydromorphone HCl (Dilaudid) Confirm Administered Dose 0 mg .ROUTE .STK-MED ONE Stop: 02/16/20 20:36 Hydromorphone HCl (Dilaudid) Confirm Administered Dose 0 mg .ROUTE .STK-MED ONE Stop: 02/16/20 20:38 Hydroxyzine Pamoate (Vistaril) 25 mg PO ONETIME ONE Stop: 02/16/20 04:25 Last Admin: 02/16/20 04:48 Dose: 25 mg Documented by: Lactated Ringer's (Ringers, Lactated) 1,000 mls @ 999 mls/hr IV .BOLUS [facility] Last Admin: 02/16/20 04:45 Dose: 999 mls/hr Documented by: Lactated Ringer's (Ringers, Lactated) 1,000 mls @ 150 mls/hr IV ASDIRECTED [facility] Last Admin: 02/16/20 19:06 Dose: 999 mls/hr Documented by: Oxytocin/Sodium Chloride (Oxytocin 30 Unit/500 Ml-Ns) 30 unit in 500 mls @ 999 mls/hr IV TITRATE [facility] Tranexamic Acid 1,000 mg/ (Sodium Chloride) 110 mls @ 660 mls/hr IV ONETIME PRN PRN Reason: Bleeding Ampicillin Sodium 2 gm/ Sodium (Chloride) 100 mls @ 200 mls/hr IV ONETIME ONE Stop: 02/16/20 07:00 Last Admin: 02/16/20 06:48 Dose: 200 mls/hr Documented by: Ampicillin Sodium 1 gm/ Sodium (Chloride) 50 mls @ 100 mls/hr IV Q4H BULL Last Admin: 02/16/20 18:44 Dose: 100 mls/hr Documented by: Oxytocin/Sodium Chloride (Oxytocin 30 Unit/500 Ml-Ns) 30 unit in 500 mls @ 2 mls/hr IV TITRATE BULL; Protocol Last Titration: 02/16/20 20:04 Dose: 999 munits/min, 999 mls/hr Documented by: Ropivacaine (Naropin 0.2%) Confirm Administered Dose 100 mls @ as directed .ROUTE .STK-MED ONE Stop: 02/16/20 19:10 Ampicillin Sodium 2 gm/ Sodium (Chloride) 100 mls @ 200 mls/hr IV ONETIME ONE Stop: 02/16/20 21:59 Last Admin: 02/16/20 21:55 Dose: 200 mls/hr Documented by: Tranexamic Acid 1,000 mg/ (Sodium Chloride) 110 mls @ 660 mls/hr IV ONETIME ONE Stop: 02/17/20 01:02 Last Admin: 02/17/20 01:05 Dose: 660 mls/hr Documented by: Lidocaine HCl (Xylocaine 1%) 50 ml INJECT ONETIME PRN PRN Reason: Laceration repair Methylergonovine Maleate (Methergine) 0.2 mg IM ASDIRECTED PRN PRN Reason: Post Hemorrhage Last Admin: 02/16/20 20:55 Dose: 0.2 mg Documented by: Misoprostol (Cytotec) 200 mcg PO ONETIME PRN PRN Reason: Post Hemorrhage Misoprostol (Cytotec) 25 mcg VAG ONETIME PRN PRN Reason: Cervical Ripening Last Admin: 02/16/20 12:40 Dose: 25 mcg Documented by: Misoprostol (Cytotec) 25 mcg PO ONETIME PRN PRN Reason: Cervical Ripening Last Admin: 02/16/20 12:39 Dose: 25 mcg Documented by: Morphine Sulfate (Morphine) Confirm Administered Dose 2 mg .ROUTE .STK-MED ONE Stop: 02/16/20 20:43 Morphine Sulfate (Morphine) 2 mg IVPUSH ONETIME ONE Stop: 02/16/20 20:47 Last Admin: 02/16/20 20:52 Dose: 2 mg Documented by: Nalbuphine HCl (Nubain) 10 mg IVPUSH Q1H PRN PRN Reason: Pain (severe 7-10) Ondansetron HCl (Zofran) 4 mg IVPUSH Q6H PRN PRN Reason: Nausea/Vomiting Sodium Chloride (Saline Flush) 10 ml FLUSH ASDIRECTED PRN PRN Reason: Keep Vein Open Sodium Chloride (Saline Flush) 2.5 ml FLUSH ASDIRECTED PRN PRN Reason: Keep Vein Open Sodium Chloride (Normal Saline) 10 ml IV ASDIRECTED PRN PRN Reason: IV Use Sodium Chloride (Saline Flush) 10 ml FLUSH ASDIRECTED PRN PRN Reason: Keep Vein Open Sodium Chloride (Saline Flush) 2.5 ml FLUSH ASDIRECTED PRN PRN Reason: Keep Vein Open Sodium Chloride (Normal Saline) 10 ml IV ASDIRECTED PRN PRN Reason: IV Use Sterile Water (Sterile Water For Irrigation) 1,000 ml IRR ASDIRECTED PRN PRN Reason: delivery Terbutaline Sulfate (Brethine) 0.25 mg SUBCUT ASDIRECTED PRN PRN Reason: Tacysystole Tranexamic Acid (Cyklokapron) Confirm Administered Dose 1,000 mg .ROUTE .BUX-MED ONE Stop: 02/17/20 01:01 - Interaction Disposition, : [place] at Bedside Interaction: Not Interacting Infant Feeding: Breastfed ; Nursed Well, Encouraged to Breastfeed Support Person: Significant Other - Recovery Exam Fundal Level: 2 Fingerbreadths Above Umbilicus Fundal Placement: Midline Lochia Amount: Moderate Lochia Color: Rubra/Red Perineum Description: Intact, Minimal Bruising/Swelling Episiotomy/Laceration: None Bladder Status: Voiding Urinary Elimination: Voided - Exam General: Oriented, Cooperative, No Acute Distress, Lethargic HEENT: Pupils Equal, Pupils Reactive, Mucous Membr. Moist/[place] Neck: Supple Lungs: Clear to Auscultation, Normal Respiratory Effort Cardiovascular: Regular Rate, Regular Rhythm GI/Abdominal Exam: Normal Bowel Sounds, Soft, Non-Tender, No Organomegaly, No Distention Extremities: Normal Inspection, Normal Range of Motion, Non-Tender, No Pedal Edema, Slow Capillary Refill Skin: Warm, Dry, Intact, Other (Pale) Neurological: No New Focal Deficit Psy/Mental Status: Normal Affect, Labile Mood - Problem List & Annotations (1) (spontaneous vaginal delivery) SNOMED Code(s): 272078214 Code(s): O80 - ENCOUNTER FOR FULL-TERM UNCOMPLICATED DELIVERY Status: Acute Priority: High Current Visit: Yes (2) Retained placenta without hemorrhage SNOMED Code(s): 246394522 Code(s): O73.0 - RETAINED PLACENTA WITHOUT HEMORRHAGE Status: Acute Priority: High Current Visit: Yes (3) Lactating mother SNOMED Code(s): 509329144, 732521521 Code(s): Z39.1 - ENCOUNTER FOR CARE AND EXAMINATION OF LACTATING MOTHER Status: Acute Priority: High Current Visit: Yes - Problem List Review Problem List Initiated/Reviewed/Updated: Yes - My Orders Last 24 Hours: My Active Orders 02/16/20 21:28 Patient Status [ADT] Routine May Shower [RC] ASDIRECTED Up ad Shannon [RC] ASDIRECTED Vital Signs [RC] PER UNIT ROUTINE Acetaminophen [Tylenol Extra Strength] 1,000 mg PO Q4H PRN Acetaminophen [Tylenol Extra Strength] 500 mg PO Q4H PRN Benzocaine/Menthol [Dermoplast Pain Relief 20%-0.5% [place]] 78 gm TOP ASDIRECTED PRN Docusate Sodium [Colace] 100 mg PO BID PRN Ibuprofen [Motrin] 400 mg PO Q4H PRN Ibuprofen [Motrin] 800 mg PO Q6H PRN Lanolin [Lansinoh HPA] See Dose Instructions TOP ASDIRECTED PRN bisacodyL [Dulcolax] 10 mg RECTAL ONETIME PRN oxyCODONE 5 mg PO Q2H PRN witch [place] [Tucks] 1 pad TOP ASDIRECTED PRN Assess Lochia [WOMSER] Per Unit Routine Assess Uterine Involution [WOMSER] Per Unit Routine Peripheral IV Discontinue [OM.PC] Routine Resuscitation Status Routine 02/16/20 21:29 Ice Therapy [OM.PC] Per Unit Routine Perineal Care [OM.PC] Per Unit Routine Sitz Bath [OM.PC] Per Unit Routine 02/16/20 21:30 Cooling Warming Measures [RC] ASDIRECTED 02/17/20 Breakfast Regular Diet [DIET] 02/17/20 07:43 Lactated Ringers [Ringers, Lactated] 1,000 ml IV STAT 02/17/20 07:52 RED BLOOD CELLS LP [BBK] Stat Transfuse Red Blood Cells [COMM] Stat 02/17/20 07:53 Verify Patient Consent Obtain [RC] ASDIRECTED 02/17/20 09:00 Iron Polysaccharides Complex [Ferrex 150] 150 mg PO DAILY - Plan Plan:: Continue with routine care. Hemodynamically stable, afebrile. Continue regular diet as tolerated. May ambulate with assistance as desired. If patient is unable to void at least every 6 hours, notify provider. support may be provided if desired or needed. Continue PO PNV and iron supplementation. 1,000 ml LR bolus now. Discussed RBAs/SEs of blood transfusion due to acute blood loss (Hgb 7.[address] Irvin consulted and transfusion and agreeable. Consents signed, patient has no issues or concerns. 2 units PRBCs ordered, RN to infuse with NS per orders ELAINA upon receipt. PRN acetaminophen and Benedryl ordered. See new orders. Dr. Irvin notified and agreeable with POC.
[2020-02-17] MEDS: Iron Polysaccharides Complex 150 MG Cap PO SCH (08:06)
[2020-02-17] MEDS ORDERED: diphenhydrAMINE 25 MG Cap PO PRN (08:23)
[2020-02-17] MEDS: Docusate Sodium 100 MG Cap PO PRN (21:16)
--- NOTE | 2020-02-18 07:55 | PCM.DCSUM1 ---
Discharge Summary - Hospital Course Free Text/Narrative:: Discharge home. Follow up in the clinic in 6 weeks for routine visit; sooner, if needed. Diagnosis: Stroke: No Modified Pope Scale: No Symptoms at All Modified Pope Scale Score: 0 - Discharge Data Discharge Date: 02/18/20 Discharge Disposition: Home, Self-Care 01 Condition: Good - Referral to Home Health Primary Care Physician: PCP None - Patient Instructions Diet: Regular Diet as Tolerated, Drink 8-10+ Glasses/Day Activity: As Tolerated, No Strenuous Activities, Rest and Relax Today Driving: May Drive Today Showering/Bathing: May Shower Notify Provider of: Fever, Increased Pain, Swelling and Redness, Drainage, Nausea and/or Vomiting - Discharge Plan *PRESCRIPTION DRUG MONITORING PROGRAM REVIEWED*: Not Applicable *COPY OF PRESCRIPTION DRUG MONITORING REPORT IN PATIENT KERMIT: Not Applicable Prescriptions/Med Rec: Ibuprofen [Motrin] 800 mg PO Q6H PRN #90 tablet PRN Reason: Pain Home Medications: Home Meds Ibuprofen [Motrin] 800 mg PO Q6H PRN #90 tablet 02/18/20 [Rx] Oxygen Therapy Mode: Room Air - Discharge Summary/Plan Comment DC Time >30 min.: Yes - General Info Date of Service: 02/18/20 Admission Dx/Problem (Free Text: Patient Status Order with Admit Dx/Problem 02/16/20 03:09 Patient Status [ADT] Routine 02/16/20 06:25 Patient Status [ADT] Routine Admission Diagnosis/Problem Admission Diagnosis/Problem 02/16/20 08:41 Gabby is a 29 yo S/P of viable term at 38+0 weeks gestation ([place] 03/01/2020) with manual placenta removal performed by Dr. Irvin ~45 s/p . Pitocin bolus and IM methergine administered at that time. Through the night, the patient experienced heavy [place] vaginal bleeding without clots. TXA administered, vaginal bleeding improved to moderate bleeding with no clots. A pos, Ab screen neg, RI, GBS pos with adequate ampicillin prophylaxis during labor. Patient experiencing mild to moderate uterine cramping somewhat alleviated by acetaminophen. Upon ambulation to bathroom, patient experiencing light-headedness, dizziness. Hgb down from 10.8 pre-delivery to 7.8 post- delivery. Patient hydrating independently, and has not eaten thus far. Patient continues to void without issue. Continuing to breastfeed well. resting quietly in bassinet at bedside. Patient denies any other issues at this time. NKDA. 02/16/20 08:43 02/16/20 08:46 Functional Status: Reports: Pain Controlled, Tolerating Diet, Ambulating, Urinating - Review of Systems General: Reports: No Symptoms HEENT: Reports: No Symptoms Pulmonary: Reports: No Symptoms Cardiovascular: Reports: No Symptoms Gastrointestinal: Reports: No Symptoms Genitourinary: Reports: No Symptoms Musculoskeletal: Reports: No Symptoms Skin: Reports: No Symptoms Neurological: Reports: No Symptoms Psychiatric: Reports: No Symptoms - Patient Data Vitals - Most Recent: Last Vital Signs Temp 97.1 F 02/18/20 07:20 Pulse 67 02/18/20 07:20 Resp 16 02/18/20 07:20 BP 108/59 L 02/18/20 07:20 Pulse Ox 95 02/18/20 03:30 Weight - Most Recent: 188 lb 3 oz I&O - Last 24 hours: Intake & Output 02/17/20 02/18/20 02/18/20 22:59 06:59 14:59 Intake Total 350 Balance 350 Lab Results - Last 24 hrs: Laboratory Results - last 24 hr 02/16/20 02/18/20 Range/Units 06:43 05:56 WBC 9.47 (4.0-11.0) K/uL RBC 3.30 L (4.30-5.90) M/uL Hgb 9.2 L (12.0-16.0) g/dL Hct 28.0 L (36.0-46.0) % MCV 84.8 (80.0-98.0) fL MCH 27.9 (27.0-32.0) pg MCHC 32.9 (31.0-37.0) g/dL RDW Std Deviation 41.4 (28.0-62.0) fl RDW Coeff of Digna 14 (11.0-15.0) % Plt Count 284 (150-400) K/uL MPV 10.20 (7.40-12.00) fL Neut % (Auto) 51.4 (48.0-80.0) % Lymph % (Auto) 38.1 (16.0-40.0) % [place] % (Auto) 8.3 (0.0-15.0) % Eos % (Auto) 1.8 (0.0-7.0) % Baso % (Auto) 0.4 (0.0-1.5) % Neut # (Auto) 4.9 (1.4-5.7) K/uL Lymph # (Auto) 3.6 H (0.6-2.4) K/uL [place] # (Auto) 0.8 (0.0-0.8) K/uL Eos # (Auto) 0.2 (0.0-0.7) K/uL Baso # (Auto) 0.0 (0.0-0.1) K/uL Nucleated RBC % 0.0 /100WBC Nucleated RBCs # 0 K/uL Blood Type A POSITIVE Antibody Screen NEGATIVE Crossmatch See Detail Med Orders - Current: Current Medications Acetaminophen (Tylenol Extra Strength) 500 mg PO Q4H PRN PRN Reason: Pain Acetaminophen (Tylenol Extra Strength) 1,000 mg PO Q4H PRN PRN Reason: Pain Last Admin: 02/17/20 04:18 Dose: 1,000 mg Documented by: Benzocaine/Menthol (Dermoplast Pain Relief 20%-0.5% [place]) 78 gm TOP ASDIRECTED PRN PRN Reason: Perineal Comfort Measure Last Admin: 02/16/20 22:03 Dose: 1 canister Documented by: Bisacodyl (Dulcolax) 10 mg RECTAL ONETIME PRN PRN Reason: Constipation Diphenhydramine HCl (Benadryl) 25 - 50 mg PO Q6H PRN PRN Reason: Itching Docusate Sodium (Colace) 100 mg PO BID PRN PRN Reason: Constipation Last Admin: 02/17/20 21:16 Dose: 100 mg Documented by: Emollient Ointment (Lansinoh Hpa) 0 gm TOP ASDIRECTED PRN PRN Reason: Sore Nipples Last Admin: 02/16/20 22:02 Dose: 7 gm Documented by: Ibuprofen (Motrin) 400 mg PO Q4H PRN PRN Reason: Pain Ibuprofen (Motrin) 800 mg PO Q6H PRN PRN Reason: Pain Last Admin: 02/17/20 21:16 Dose: 800 mg Documented by: Oxycodone HCl (Oxycodone) 5 mg PO Q2H PRN PRN Reason: Pain Polysaccharide Iron Complex (Ferrex 150) 150 mg PO DAILY [facility] Last Admin: 02/17/20 08:06 Dose: 150 mg Documented by: Justyna Burr (Betty) 1 pad TOP ASDIRECTED PRN PRN Reason: comfort care Last Admin: 02/16/20 22:03 Dose: 1 tub Documented by: Discontinued Medications Benzocaine/Menthol (Dermoplast Pain Relief 20%-0.5% [place]) Confirm Administered Dose 0 gm .ROUTE .STK-MED ONE Stop: 02/17/20 03:54 Butorphanol Tartrate (Stadol) 1 mg IVPUSH Q1H PRN PRN Reason: Pain Last Admin: 02/16/20 16:28 Dose: 1 mg Documented by: Carboprost Tromethamine (Hemabate Ds) 250 mcg IM ASDIRECTED PRN PRN Reason: Post Hemorrhage Fentanyl (Sublimaze) Confirm Administered Dose 100 mcg .ROUTE .STK-MED ONE Stop: 02/16/20 19:10 Hydromorphone HCl (Dilaudid) 1 mg IVPUSH ONETIME ONE Stop: 02/16/20 20:37 Hydromorphone HCl (Dilaudid) Confirm Administered Dose 0 mg .ROUTE .STK-MED ONE Stop: 02/16/20 20:36 Hydromorphone HCl (Dilaudid) Confirm Administered Dose 0 mg .ROUTE .STK-MED ONE Stop: 02/16/20 20:38 Hydroxyzine Pamoate (Vistaril) 25 mg PO ONETIME ONE Stop: 02/16/20 04:25 Last Admin: 02/16/20 04:48 Dose: 25 mg Documented by: Lactated Ringer's (Ringers, Lactated) 1,000 mls @ 999 mls/hr IV .BOLUS [facility] Last Admin: 02/16/20 04:45 Dose: 999 mls/hr Documented by: Lactated Ringer's (Ringers, Lactated) 1,000 mls @ 150 mls/hr IV ASDIRECTED [facility] Last Admin: 02/16/20 19:06 Dose: 999 mls/hr Documented by: Oxytocin/Sodium Chloride (Oxytocin 30 Unit/500 Ml-Ns) 30 unit in 500 mls @ 999 mls/hr IV TITRATE BULL Tranexamic Acid 1,000 mg/ (Sodium Chloride) 110 mls @ 660 mls/hr IV ONETIME PRN PRN Reason: Bleeding Ampicillin Sodium 2 gm/ Sodium (Chloride) 100 mls @ 200 mls/hr IV ONETIME ONE Stop: 02/16/20 07:00 Last Admin: 02/16/20 06:48 Dose: 200 mls/hr Documented by: Ampicillin Sodium 1 gm/ Sodium (Chloride) 50 mls @ 100 mls/hr IV Q4H BULL Last Admin: 02/16/20 18:44 Dose: 100 mls/hr Documented by: Oxytocin/Sodium Chloride (Oxytocin 30 Unit/500 Ml-Ns) 30 unit in 500 mls @ 2 mls/hr IV TITRATE BULL; Protocol Last Titration: 02/16/20 20:04 Dose: 999 munits/min, 999 mls/hr Documented by: Ropivacaine (Naropin 0.2%) Confirm Administered Dose 100 mls @ as directed .ROUTE .[facility]-MED ONE Stop: 02/16/20 19:10 Ampicillin Sodium 2 gm/ Sodium (Chloride) 100 mls @ 200 mls/hr IV ONETIME ONE Stop: 02/16/20 21:59 Last Admin: 02/16/20 21:55 Dose: 200 mls/hr Documented by: Tranexamic Acid 1,000 mg/ (Sodium Chloride) 110 mls @ 660 mls/hr IV ONETIME ONE Stop: 02/17/20 01:02 Last Admin: 02/17/20 01:05 Dose: 660 mls/hr Documented by: Lactated Ringer's (Ringers, Lactated) 1,000 mls @ 999 mls/hr IV STAT STA Stop: 02/17/20 08:43 Last Admin: 02/17/20 08:06 Dose: 999 mls/hr Documented by: Lidocaine HCl (Xylocaine 1%) 50 ml INJECT ONETIME PRN PRN Reason: Laceration repair Methylergonovine Maleate (Methergine) 0.2 mg IM ASDIRECTED PRN PRN Reason: Post Hemorrhage Last Admin: 02/16/20 20:55 Dose: 0.2 mg Documented by: Misoprostol (Cytotec) 200 mcg PO ONETIME PRN PRN Reason: Post Hemorrhage Misoprostol (Cytotec) 25 mcg VAG ONETIME PRN PRN Reason: Cervical Ripening Last Admin: 02/16/20 12:40 Dose: 25 mcg Documented by: Misoprostol (Cytotec) 25 mcg PO ONETIME PRN PRN Reason: Cervical Ripening Last Admin: 02/16/20 12:39 Dose: 25 mcg Documented by: Morphine Sulfate (Morphine) Confirm Administered Dose 2 mg .ROUTE .STK-MED ONE Stop: 02/16/20 20:43 Morphine Sulfate (Morphine) 2 mg IVPUSH ONETIME ONE Stop: 02/16/20 20:47 Last Admin: 02/16/20 20:52 Dose: 2 mg Documented by: Nalbuphine HCl (Nubain) 10 mg IVPUSH Q1H PRN PRN Reason: Pain (severe 7-10) Ondansetron HCl (Zofran) 4 mg IVPUSH Q6H PRN PRN Reason: Nausea/Vomiting Sodium Chloride (Saline Flush) 10 ml FLUSH ASDIRECTED PRN PRN Reason: Keep Vein Open Sodium Chloride (Saline Flush) 2.5 ml FLUSH ASDIRECTED PRN PRN Reason: Keep Vein Open Sodium Chloride (Normal Saline) 10 ml IV ASDIRECTED PRN PRN Reason: IV Use Sodium Chloride (Saline Flush) 10 ml FLUSH ASDIRECTED PRN PRN Reason: Keep Vein Open Sodium Chloride (Saline Flush) 2.5 ml FLUSH ASDIRECTED PRN PRN Reason: Keep Vein Open Sodium Chloride (Normal Saline) 10 ml IV ASDIRECTED PRN PRN Reason: IV Use Sterile Water (Sterile Water For Irrigation) 1,000 ml IRR ASDIRECTED PRN PRN Reason: delivery Terbutaline Sulfate (Brethine) 0.25 mg SUBCUT ASDIRECTED PRN PRN Reason: Tacysystole Tranexamic Acid (Cyklokapron) Confirm Administered Dose 1,000 mg .ROUTE .STK-MED ONE Stop: 02/17/20 01:01 - Exam General: Reports: Alert, Oriented, Cooperative, No Acute Distress Lungs: Reports: Normal Respiratory Effort Cardiovascular: Reports: Regular Rate, Regular Rhythm GI/Abdominal Exam: Soft, Non-Tender (Female) Exam: Deferred Rectal (Female) Exam: Deferred Back Exam: Reports: Normal Inspection, Full Range of Motion Extremities: Normal Inspection, Normal Range of Motion, Non-Tender, Normal Capillary Refill Skin: Reports: Warm, Dry, Intact Neurological: Reports: No New Focal Deficit, Normal Speech, Normal Tone, Sensation Intact Psy/Mental Status: Reports: Alert, Normal Affect, Normal Mood
[2020-02-18] MEDS: Iron Polysaccharides Complex 150 MG Cap PO SCH (08:42)
== END 2020-02-18 12:26 | disposition home or self-care (01) | DRG 807 ==
LOC: MW.OBCHECK 02:26 → MW.OB 02:27 → MW.OBCHECK 06:25 → OBSVTOIN 20:04 → MW.OB 02-17 01:30
PROVIDERS: ADMIT Obstetrics & Gynecology; ATTEND Nurse Practitioner Women's Health
PROC: 10E0XZZ Delivery of Products of Conception, External Approach (ICD-10-PCS; principal; 2020-02-16)
PROC: 10D17Z9 Manual Extraction of Products of Conception, Retained, Via Natural or Artificial Opening (ICD-10-PCS; 2020-02-16)
DX: O99.824 Streptococcus B carrier state complicating childbirth (principal); Z37.0 Single live birth; Z3A.38 38 weeks gestation of pregnancy; O44.43 Low lying placenta NOS or without hemorrhage, third trimester; O73.0 Retained placenta without hemorrhage; Z20.822 Contact with and (suspected) exposure to COVID-19
CPT/HCPCS: 36415; 36430; 59025; 59409; 85014; 85018; 85025; 85027; 86592; 86850; 86900; 86901; 86920; 86921; 86922; A9270-GY; J0290; J0595; J2210; J2270; J2590; J7050; J7120; P9016; U0002

== ENCOUNTER 2022-05-05 00:03 | Inpatient (IN) | payer SELFPAY ==
[2022-05-05] MEDS ORDERED: Methylergonovine 0.2 MG/1 ML Amp IM PRN (00:36)
[2022-05-05] MEDS ORDERED: Sodium Chloride 0.9% 20 ML SDV IV PRN (00:36)
[2022-05-05] MEDS ORDERED: Ondansetron 4 MG/2 ML SDV IVPUSH PRN (00:36)
[2022-05-05] MEDS ORDERED: Tranexamic Acid 1,000 MG in Sodium Chloride 0.9% 100 ML IV PRN (00:36)
[2022-05-05] MEDS ORDERED: Water For Irrigation,Sterile 1,000 ML Container IRR PRN (00:36)
[2022-05-05] MEDS ORDERED: Terbutaline 1 MG/ML SDV SUBCUT PRN (00:36)
[2022-05-05] MEDS ORDERED: Lidocaine 1% 50 ML MDV INJECT PRN (00:36)
[2022-05-05] MEDS ORDERED: Butorphanol 1 MG/ML SDV IVPUSH PRN (00:36)
[2022-05-05] MEDS ORDERED: Sodium Chloride 0.9% 2.5 ML Syringe FLUSH PRN (00:36)
[2022-05-05] MEDS ORDERED: Sodium Chloride 0.9% 10 ML Syringe FLUSH PRN (00:36)
[2022-05-05] MEDS ORDERED: Carboprost Tromethamine 250 MCG/1 ML Amp IM PRN (00:36)
[2022-05-05] MEDS ORDERED: Misoprostol 200 MCG Tab PO PRN (00:36)
[2022-05-05] MEDS ORDERED: Lactated Ringers 1,000 ML IV SCH (00:45)
[2022-05-05] MEDS ORDERED: Oxytocin/0.9 % Sodium Chloride 30 UNIT/500 ML BAG IV SCH ×2 (00:45)
[2022-05-05] MEDS ORDERED: Misoprostol 25 MCG (1/4 of 100 MCG) Tab PO PRN ×2 (01:00→05:00)
[2022-05-05] MEDS ORDERED: Misoprostol 25 MCG (1/4 of 100 MCG) Tab VAG PRN ×2 (01:00→05:00)
[2022-05-05] MEDS ORDERED: Bisacodyl 10 MG Supp RECTAL PRN (11:27)
[2022-05-05] MEDS ORDERED: Acetaminophen 500 MG Tab PO PRN (11:27)
[2022-05-05] MEDS ORDERED: Lanolin 100% Cream 7 GM Tube TOP PRN (11:27)
[2022-05-05] MEDS ORDERED: Witch Hazel Medicated Pads 40/Jar TOP PRN (11:27)
[2022-05-05] MEDS ORDERED: Docusate Sodium 100 MG Cap PO PRN (11:27)
[2022-05-05] MEDS ORDERED: Benzocaine/Menthol 20%-0.5% Spray 78 GM Cannister TOP PRN (11:27)
[2022-05-05] MEDS ORDERED: Ibuprofen 400 MG Tab PO PRN (11:27)
[2022-05-05] MEDS: Ibuprofen 800 MG Tab PO PRN (17:07)
[2022-05-05] MEDS: Acetaminophen 500 MG Tab PO PRN ×2 (17:07→20:39)
[2022-05-06] MEDS: Ibuprofen 800 MG Tab PO PRN ×2 (04:35→14:03)
[2022-05-06] MEDS: Acetaminophen 500 MG Tab PO PRN (08:37)
== END 2022-05-06 17:35 | disposition home or self-care (01) | DRG 807 ==
LOC: MW.OBCHECK 00:03 → MW.OB 00:05 → MW.OBCHECK 00:36 → MW.OB 00:36 → OBSVTOIN 10:51 → MW.OB 16:08
PROVIDERS: ADMIT Obstetrics & Gynecology; ATTEND Obstetrics & Gynecology
PROC: 10E0XZZ Delivery of Products of Conception, External Approach (ICD-10-PCS; principal; 2022-05-05)
PROC: 3E0P7VZ Introduction of Hormone into Female Reproductive, Via Natural or Artificial Opening (ICD-10-PCS; 2022-05-05)
DX: O80 Encounter for full-term uncomplicated delivery (principal); Z37.0 Single live birth; Z3A.40 40 weeks gestation of pregnancy; Z20.822 Contact with and (suspected) exposure to COVID-19
CPT/HCPCS: 36415; 59025; 59409; 85014; 85018; 85027; 86592; 86850; 86900; 86901; 86920; A9270-GY; J0595; J2405; J2590; J7120; U0002